=== PATIENT | male | born 1960 | race Caucasian/White ===

== ENCOUNTER 2018-01-12 03:06 | Emergency (ER) | payer BC ==
[2018-01-12 03:27] LABS: HEMATOCRIT 42 % (39-53); MEAN CORPUSCULAR HGB CONC 34.8 gm/dl (32.0-36.0)
[2018-01-12] MEDS ORDERED: SODIUM CHLORIDE 0.9% 1000ML 1,000 ML IV ONE ×2 (03:32→05:00)
[2018-01-12 03:40] LABS: ALBUMIN 3.8 gm/dl (3.4-5.0); ALT 34 IU/L (14-63); CALCIUM 8.6 mg/dl (8.5-10.1); GLOM FILT RATE 61 mL/min (>60); POTASSIUM 3.6 mMol/L (3.5-5.1); SODIUM 142 mMol/L (136-145)
[2018-01-12 03:47] LABS: MEAN CORPUSCULAR VOLUME 81 fL (80-100)
[2018-01-12 04:03] LABS: BASOPHILS % (MANUAL) 0 % (0-3); EOSINOPHILS % (MANUAL) 7 % (0-9); LYMPHOCYTES % (MANUAL) 33 % (10-50); NORMAL RBCS PRESENT
[2018-01-12 09:30] VITALS: BP 137/91; PULSE 70; RESP 20; TEMP 97.8; O2SAT 95
[2018-01-12 09:35] LABS: APPEARANCE,URINE Clear; BILIRUBIN,URINE NEGATIVE (NEGATIVE); COLOR,URINE Yellow; GLUCOSE, URINE (UA) NEGATIVE (NEGATIVE); KETONES,URINE NEGATIVE (NEGATIVE); LEUKOCYTE ESTERASE ,URINE NEGATIVE (NEGATIVE); NITRATE,URINE NEGATIVE (NEGATIVE); OCCULT BLOOD,URINE NEGATIVE (NEG-TRACE); UROBILINOGEN,URINE 0.2 (0.2-1.0 EU)
[2018-01-12 10:45] LABS: RBC,URINE 0-1 (0-3AV/HPF); WBC,URINE 0-2 (0-5AV/HPF)
== END 2018-01-12 10:04 | disposition home or self-care (01) ==
LOC: ED 03:06
DX: R55 Syncope and collapse (principal); Z82.49 Family history of ischemic heart disease and other diseases of the circulatory system
CPT/HCPCS: 36415; 70450; 71045; 80053; 80307; 81001; 84484; 85007; 85027; 85378; 85610; 87088; 93005; 96365; 96366; 99284; 99285